=== PATIENT | male | born 1980 | race Caucasian/White ===

== ENCOUNTER 2022-09-23 06:28 | Outpatient (OUT) | payer BC, SELFPAY ==
[2022-09-23 07:12] LABS: Basophils Absolute Auto 0.1 10^3/uL (0.0-0.1); Basophils Percent Auto 0.7 % (0.2-2.0); Eosinophils Absolute Auto 0.1 10^3/uL (0.0-0.7); Eosinophils Percent Auto 1.6 % (0.9-7.0); Hematocrit 44.3 % (42.0-54.0); Hemoglobin 15.6 g/dL (14.0-18.0); Immature Granulocytes Abs Auto 0.02 10^3/uL (0.00-0.03); Immature Granulocytes Pct Auto 0.3 % (0.0-0.5); Lymphocytes Absolute Auto 2.5 10^3/uL (1.2-3.8); Mean Corpuscular HGB Conc 35.2 g/dL (29.9-35.2); Mean Corpuscular Hemoglobin 31.3 pg (25.9-34.0); Mean Platelet Volume 9.7 fL (9.5-13.5); Monocytes Absolute Auto 0.6 10^3/uL (0.3-0.8); Monocytes Percent Auto 8.3 % (1.7-12.0); Neutrophils Absolute Auto 3.5 10^3/uL (1.4-6.5); Neutrophils Percent Auto 52.1 % (43.0-75.0); Platelet Count 226 10^3/uL (150-450); Red Blood Count 4.98 10^6/uL (4.70-6.10); Red Cell Distribution Width 12.3 % (11.0-15.0); White Blood Count 6.7 10^3/uL (4.0-11.0)
[2022-09-23 07:56] LABS: Alanine Aminotransferase 48 U/L (16-63); Albumin Globulin Ratio 1.2; Alkaline Phosphatase 60 U/L (46-116); Anion Gap 10.8; Aspartate Amino Transferase 13 U/L (15-37); BUN Creatinine Ratio 18.8; Bilirubin Total 0.5 mg/dL (0.2-1.0); Calcium 8.7 mg/dL (8.5-10.1); Carbon Dioxide 27.6 mmol/L (21.0-32.0); Chloride 107 mmol/L (98-107); Chol HDL Ratio 4.5; Cholesterol 143 mg/dL (<=200); Estimated GFR (African America >60 (>=60); Estimated GFR (Non-African Ame >60 (>=60); Globulin 3.4 g/dL; Glucose 105 mg/dL (74-106); HDL Cholesterol 32 mg/dL (40-60); Potassium 4.4 mmol/L (3.5-5.1); Sodium 141 mmol/L (136-145); Total Protein 7.4 g/dL (6.4-8.2); Triglycerides 70 mg/dL (<=150)
[2022-09-23 08:12] LABS: Prostate Specific Antigen Scrn 0.74 ng/mL (<=4.00)
== END 2022-09-23 06:29 | disposition home or self-care (01) ==
PROVIDERS: PCP Family Medicine; Visit Provider Family Medicine
DX: Z00.00 Encounter for general adult medical examination without abnormal findings (principal); Z12.5 Encounter for screening for malignant neoplasm of prostate; E78.5 Hyperlipidemia, unspecified
CPT/HCPCS: 36415; 80053; 80061; 85002; 85025; G0103

== ENCOUNTER 2023-09-20 07:52 | Outpatient (OUT) | payer BC, SELFPAY ==
[2023-09-20 08:02] LABS: Basophils Absolute Auto 0.1 10^3/uL (0.0-0.1); Basophils Percent Auto 0.7 % (0.2-2.0); Eosinophils Absolute Auto 0.1 10^3/uL (0.0-0.7); Eosinophils Percent Auto 1.3 % (0.9-7.0); Hematocrit 46.4 % (42.0-54.0); Immature Granulocytes Abs Auto 0.04 10^3/uL (0.00-0.03); Immature Granulocytes Pct Auto 0.5 % (0.0-0.5); Lymphocytes Absolute Auto 2.5 10^3/uL (1.2-3.8); Lymphocytes Percent Auto 32.8 % (20.5-60.0); Mean Corpuscular HGB Conc 34.5 g/dL (29.9-35.2); Mean Corpuscular Hemoglobin 31.1 pg (25.9-34.0); Mean Corpuscular Volume 90.3 fL (80.0-94.0); Mean Platelet Volume 9.6 fL (9.5-13.5); Monocytes Absolute Auto 0.5 10^3/uL (0.3-0.8); Monocytes Percent Auto 6.5 % (1.7-12.0); Neutrophils Absolute Auto 4.4 10^3/uL (1.4-6.5); Neutrophils Percent Auto 58.2 % (43.0-75.0); Platelet Count 224 10^3/uL (150-450); Red Blood Count 5.14 10^6/uL (4.70-6.10); Red Cell Distribution Width 12.3 % (11.0-15.0); White Blood Count 7.5 10^3/uL (4.0-11.0)
[2023-09-20 08:29] LABS: Estimated Average Glucose 103 mg/dL; Glycohemoglobin A1C 5.2 % (4.5-6.2)
[2023-09-20 08:44] LABS: Alanine Aminotransferase 54 U/L (16-63); Albumin Globulin Ratio 1.1; Albumin Level 3.9 g/dL (3.4-5.0); Alkaline Phosphatase 81 U/L (46-116); Anion Gap 13.1; Aspartate Amino Transferase 19 U/L (15-37); BUN Creatinine Ratio 12.5; Bilirubin Total 0.8 mg/dL (0.2-1.0); Calcium 8.7 mg/dL (8.5-10.1); Chloride 104 mmol/L (98-107); Cholesterol 141 mg/dL (<=200); Estimated GFR (African America >60 (>=60); Estimated GFR (Non-African Ame >60 (>=60); Free T3 3.11 pg/mL (2.18-3.98); Globulin 3.5 g/dL; Glucose 108 mg/dL (74-106); HDL Cholesterol 35 mg/dL (40-60); Potassium 4.1 mmol/L (3.5-5.1); Sodium 139 mmol/L (136-145); Thyroid Stimulating Hormone 1.677 uIU/mL (0.358-3.740); Total Protein 7.4 g/dL (6.4-8.2); Triglycerides 79 mg/dL (<=150); VLDL CHOLESTEROL 15.8 mg/dL
[2023-09-20 08:50] LABS: Prostate Specific Antigen Scrn 0.54 ng/mL (<=4.00)
== END 2023-09-20 07:53 | disposition home or self-care (01) ==
PROVIDERS: PCP Family Medicine; Visit Provider Family Medicine
DX: Z00.00 Encounter for general adult medical examination without abnormal findings (principal)
CPT/HCPCS: 36415; 80053; 80061; 83036; 84436; 84443; 84481; 85025; G0103

== ENCOUNTER 2024-09-23 07:34 | Outpatient (OUT) | payer BC, SELFPAY ==
--- OUTSIDE RECORDS SUMMARY | 2023-09-20 11:30 | XMS_ITS ---
Author Organization [facility] in [place] Address [address] [place] [address] Care Team Providers Care Sourcing Associate Name Role Phone Rodrigo Gustafson Primary Care Provider [phone] Allergies No Known Allergies REASON FOR VISIT YEARLY-ppw on desk to fill out Social History Tobacco Use: Social History Observation Description Date Details (start date - stop date) Former Smoker 02/13/1995 - 02/13/2010 Tobacco Use/Smoking Question Answer Notes Patient is a former smoker When did you start smoking? 02/13/1995 When did you stop smoking? 02/13/2010 How long has it been since you last smoked? > 10 years Problems Problem Type SNOMED Code ICD Code Onset Dates Problem Status W/U Status Risk Notes Problem Well adult (768216626) Well adult (Z00.00) Active confirmed Vital Signs Blood pressure systolic 120 mm Hg 09/20/19 24 Blood pressure diastolic 86 mm Hg 024 Heart Rate 86 /min 09/20/2023 Height 67.5 in 09/20/2023 Weight 232.6 lbs 09/20/2023 BMI 35.89 kg/m2 09/20/2023 Oximetry 97 % 09/20/2023 Encounters Encounter Location Date Provider Diagnosis [facility] [address] [place] [address] 09/20/2023 Rodrigo Gustafson Well adult Z00.0 0 Assessments Encounter Date Diagnosis (ICD Code) Assessment Notes Treatment Notes Treatment Clinical Notes Section Notes 09/20/2023 Well adult (ICD-10 - Z00.00) doing well withougt meds - reviewed labs Plan Of Treatment Treatment Notes Assessment Notes Well adult doing well withougt meds - reviewed labs Progress Notes * Narendra DIXON GDOB:1980 (42 yo M)Acc No.[id number]:09/20/2023 Progress Note Patient: Narendra MARTINEZ Provider: Agueda Gustafson ([facility])MD :1980 A ge:42 Y S ex:Male Date:09/20/2023 Address:[facility] [address], [place], [id number] Check In:03:25 PM ESTCheck O ut:04:16 PM EST Subjective: * Chief Complaints: * 1 . YEARLY-ppw on desk to fill out. * HPI: D epression Screening: PHQ-2 (2015 Edition) L ittle interest or pleasure in doing things??Not at all F eeling down, depressed, or hopeless? N ot at all T otal Score 0 welladult. * ROS: E ENT: hearing changes d enies. v isual changes d enies.?non-healing mouth sores d enies. s wollen glands or neck lumps d enies. h oarseness d enies. s ore throat d enies. d ifficulty swallowing d enies. n ose bleeds d enies. n gm congestion d enies. e ar ache d enies. e ar discharge?denies. r inging in ears d enies. l ight sensitivity d enies. e ye pain d enies. b lurring d enies. e ye irritation d enies. d ouble vision d enies.?vision loss d enies. G eneral/Constitutional: Sweats: D enies. F atigue d enies. S leep problems d enies. A norexia d enies. M alaise d enies. W eight loss d enies.?Fatigue or Weakness d enies. F ever or Chills d enies. C ardiovascular: Shortness of Breath w/lying flat d enies. L ightheadedness/dizziness d enies. C hest tightness/ heavy pressure d enies. S welling of legs, ankles, or feet d enies. W aking up with shortness of breath d enies. C hest pain denies. P alpitations d enies. W eight gain d enies. R espiratory: Chronic or frequent cough d enies. C oughing up blood?denies. D ifficulty breathing d enies. P roductive cough d enies. S noring?denies. S hortness of breath that awakens from sleep (PND) d enies. C hest pain d enies. S putum production d enies. W heezing d enies. M usculoskeletal: Joint pain d enies. J oint Fluid d enies. B ack pain d enies. K nee pain d enies. N rosie pain d enies. J oint Stiffness d enies. M uscle cramps d enies. W eakness of muscles d enies. A rthritis d enies. M uscle aches d enies. P ain in shoulder(s) d enies. S wollen joints d enies. * Active Problem List Z00.00 Well adult Modified On:09/20/2023W/U Status:confirmed * Medical History: C OPD (chronic obstructive pulmonary disease), Hyperlipidemia. * Surgical History: D enies Past Surgical History. * Hospitalization/Major Diagno stic Procedure: D enies Past Hospitalization. * Family History: F ather: alive. M other: alive. B rother(s): alive. S ister(s): alive. S on(s): alive. D augtcer(s): alive. 2 brother(s) , 1 sister(s) - healthy. 1 son(s) , 2 daughter(s) - healthy. . * Social History: T obacco Use: T obacco Use/Smoking P atient is a f ormer smoker W hen did you start smoking? 0 02/13/1995 W hen did you stop smoking? 0 02/13/2010 H ow long has it been since you last smoked??> 10 years * Medications: N one * Allergies: N .K.D.A. Objective: * Vitals: W t:232.6lbs, Ht: 67.5 in, BP:120/86mm Hg, HR:86/min, BMI:35.89Index, Oxygen sat %:97%, Ht-cm: 171.45 cm, Wt-k.51 kg. * Examination: P hysical Exam: GENERAL: w susanna developed, well nourished, in no acute distress. HEAD: n ormocephalic/atraumatic. EYES: p upils equal, round and reactive to light, conjunctivae and sclerae normal. EARS: n o deformity or lesion of external ear, canals and TM appear normal bilaterally, TM's intact, not inflamed with normal light reflex, hearing grossly normal to conversational speech. NOSE: n o deformity, discharge, inflammation, or lesions.? MOUTH: m ucous membranes moist, normal oropharynx and posterior pharynx without lesions or exudates, tongue normal, dentition normal. NECK: n rosie supple, no masses or palpable cervical nodes, trachea midline, thyroid without nodules, masses, tenderness, or enlargement. CHEST: n o chest wall deformity, no chest wall tenderness.? LUNGS: n ormal respiratory effort and clear to auscultation, no wheezes, rales, or rhonchi, good air exchange. CARDIO: r egular rate and rhythm, normal S1 and S2, nor murmur, rub, or gallop. PULSES: n ormal capillary refill. ABDOMEN: s oft, non-distended, non-tender, no masses. MUSCULOSKELETAL: n o deformity or scoliosis noted, normal range of motion, joints normal, no erythema, edema, effusion, or ecchymosis. EXTREMITY: n o clubbing, cyanosis, edema, or deformity with normal ROM in both upper and lower bilateral extremities. NEUROLOGIC: g rossly normal. SKIN: n o rashes, ulcerations, or suspicious lesions. LYMPH NODES: n o cervical adenopathy, nodes normal. MENTAL STATUS: a lert and oriented x3, normal mood and affect. Assessment: * Assessment: 1. W ell adult - Z00.00 (Primary) Plan: * Treatment: * * Sign off status: Completed Visit Status: C HK (Check Out) true * Provider: Agueda Gustafson (MD [facility] Date: 0 09/20/2023 Generated for Printi ng/Faxing/eTransmitting on: 0 09/23/2024 07:39 AM EDT History and Physical Notes * HPI (History of Present Illness) Category Sub-Category Detail Notes Category Not es Depression Screening PHQ-2 (2015 Edition) Little interest or pleasure in doing things?: Not at all welladult Feeling down, depressed, or hopeless?: N ot at all Total Score: 0 Examination Category Sub-Category Detail Notes Category Not es Physical Exam GENERAL: well developed, well nourished, in no acute distress HEAD: normocephalic/atraum atic EYES: pupils equal, round and reactive to light, conjunctivae and sclerae normal EARS: no deformity or lesi on of external ear, canals and TM appear normal bilaterally, TM's intact, not inflamed with normal light reflex, hearing grossly normal to conversational speech NOSE: no deformity, discha rge, inflammation, or lesions MOUTH: mucous membranes kurt [place], normal oropharynx and posterior pharynx without lesions or exudates, tongue normal, dentition normal NECK: neck supple, no mass es or palpable cervical nodes, trachea midline, thyroid without nodules, masses, tenderness, or enlargement CHEST: no chest wall deform ity, no chest wall tenderness LUNGS: normal respiratory e ffort and clear to auscultation, no wheezes, rales, or rhonchi, good air exchange CARDIO: regular rate and rhy thm, normal S1 and S2, nor murmur, rub, or gallop PULSES: normal capillary ref ill ABDOMEN: soft, non-distended, non-tender, no masses RECTAL: MUSCULOSKELETAL: no deformity or scol iosis noted, normal range of motion, joints normal, no erythema, edema, effusion, or ecchymosis EXTREMITY: no clubbing, cyanosi s, edema, or deformity with normal ROM in both upper and lower bilateral extremities NEUROLOGIC: grossly normal SKIN: no rashes, ulceratio ns, or suspicious lesions LYMPH NODES: no cervical adenopat hy, nodes normal MENTAL STATUS: alert and oriented x 3, normal mood and affect
--- OUTSIDE RECORDS SUMMARY | 2024-08-20 05:00 | XMS_ITS ---
Author Organization [facility] [place] Address [address] [place] [address] Care Team Providers Care Concert Manager Name Role Phone Rodrigo Gustafson Primary Care Provider [phone] Allergies No Known Allergies REASON FOR VISIT sinus issues- c/o sinus congestion and cough started last Medications Medication SIG (Take, Route, Frequency, Duration) Notes Start Date End Date Status Amoxicillin-Pot Clavulanate 875-125 MG 1 tablet Orally every 12 hrs for 10 days 08/20/2024 Active predniSONE 20 MG 3 tablets Orally Onc e a day for 5 days 08/20/2024 Active Claritin 10 MG 1 tablet Orally Once a day 08/20/2024 Active Social History Tobacco Use: Social History Observation Description Date Details (start date - stop date) Former Smoker 02/13/1995 - 02/13/2010 Tobacco Use/Smoking Question Answer Notes Patient is a former smoker When did you start smoking? 02/13/1995 When did you stop smoking? 02/13/2010 How long has it been since you last smoked? > 10 years AUDIT-C (Standard) Question Answer Notes Did you have a drink contain ing alcohol in the past year? Yes How often did you have a dri nk containing alcohol in the past year? Never (0 point) How many drinks did you have on a typical day when you were drinking in the past year? 1 or 2 drinks (0 point) How often did you have six o r more drinks on one occasion in the past year? 2 to 4 times a month (2 points) Points 2 Interpretation Negative Vital Signs Blood pressure systolic 120 mm Hg 08/21/19 25 Blood pressure diastolic 92 mm Hg 025 Height 67.5 in 08/20/2024 Weight 238.4 lbs 08/20/2024 BMI 36.78 kg/m2 08/20/2024 Encounters Encounter Location Date Provider Diagnosis [facility] [address] [place] [address] 08/20/2024 Rodrigo Gustafson Acute non-recurrent sinusitis, unspecified location J01.90 and Nasal congestion R09.81 Assessments Encounter Date Diagnosis (ICD Code) Assessment Notes Treatment Notes Treatment Clinical Notes Section Notes 08/20/2024 Acute non-recurrent sinusitis, unspecified location (ICD-10 - J01.90) Rest and drink more liquids, especially water. You may use a humidifier or vaporizer to help keep the drainage moist. Bunr-uxk-zxgovos Nasal Saline may help the stuffy and runny nose. Use Ibuprofen and or Tylenol as needed for fever, chills, body aches or pain. Children 5 years old should not be given yhmb-sqg-mvygbcp cough and cold medications such as guaifenesin and dextromethorphan. If you're over age 5, you may try uayp-ehz-rpfifnj cold medications such as guaifenesin and dextromethorphan, or multi-symptom cold reliever such as Dayquil to help reduce the symptoms. Antibiotics have been prescribed. You should take these until completed and follow the directions. Antibiotics can sometimes cause upset stomach, and in rare cases, serious allergic reactions or serious gastrointestinal problems. If you start having severe abdominal pain, severe vomiting, or bloody diarrhea, you should be reevaluated by your physician or urgent care immediately. Follow up with your Primary Care Provider or return to clinic if symptoms do not improve within 3-5 days 08/20/2024 Nasal congestion (ICD-10 - R09.81) Plan Of Treatment Medication Medication Name Sig Start Date Stop Date Notes Amoxicillin-Pot Clavulanate 875-125 MG 1 tablet Orally every 12 hrs for 10 days 08/20/2024 predniSONE 20 MG 3 tablets Orally Onc e a day for 5 days 08/20/2024 Treatment Notes Assessment Notes Acute non-recurrent sinusiti s, unspecified location Rest and drink more liquids, especially water. You may use a humidifier or vaporizer to help keep the drainage moist. Gapv-ujh-shuokro Nasal Saline may help the stuffy and runny nose. Use Ibuprofen and or Tylenol as needed for fever, chills, body aches or pain. Children 5 years old should not be given nliz-bbj-elvlgud cough and cold medications such as guaifenesin and dextromethorphan. If you're over age 5, you may try xwbq-cjq-rmholwt cold medications such as guaifenesin and dextromethorphan, or multi-symptom cold reliever such as Dayquil to help reduce the symptoms. Antibiotics have been prescribed. You should take these until completed and follow the directions. Antibiotics can sometimes cause upset stomach, and in rare cases, serious allergic reactions or serious gastrointestinal problems. If you start having severe abdominal pain, severe vomiting, or bloody diarrhea, you should be reevaluated by your physician or urgent care immediately. Follow up with your Primary Care Provider or return to clinic if symptoms do not improve within 3-5 days Next Appt Details Follow Up: 3-5 days if not i mproving, Reason: Progress Notes * Narendra DIXON GDOB:1980 (43 yo M)Acc No.[id number]:08/20/2024 Progress Note Patient: Narendra MARTINEZ Provider: Agueda Gustafson ([facility])MD :1980 A ge:43 Y S ex:Male Date:08/20/2024 Address:[facility] [place] , [facility], [id number] Check In:08:59 AM ESTCheck O ut:09:13 AM EST Subjective: * Chief Complaints: * s inus issues- c/o sinus congestion and cough started last * HPI: D epression Screening: PHQ-2 (2015 Edition) L ittle interest or pleasure in doing things??Not at all F eeling down, depressed, or hopeless? N ot at all T otal Score 0 4 days -. S inusitis: The patient complains of symptoms of sinus infection. The symptoms have been present for 1-2 days. The symptoms are moderate. Symptomatic treatment has included OTC medication. Associated symptoms include headache, facial pain, runny nose, nasal congestion. * ROS: S kin: Rash agueda enies. E NT: Comments S [employer] for details. C ardiovascular: Edema d enies. P alpitations d enies. ? R espiratory: Chest pain d enies. C ough d enies. W heezing?denies. G astrointestinal: Abdominal pain d enies. N ausea d enies. V omiting d enies. * Active Problem List Z00.00 Well adult Modified On:09/20/2023W/U Status:confirmed * Medical History: * Surgical History: D enies Past Surgical History * Hospitalization/Major Diagno stic Procedure: D enies Past Hospitalization * Family History: F ather: alive. M other: alive. B rother(s): alive. S ister(s): alive. S on(s): alive. D aughter(s): alive. 2 brother(s) , 1 sister(s) - healthy. 1 son(s) , 2 daughter(s) - healthy. . * Social History: T obacco Use: T obacco Use/Smoking P atient is a f ormer smoker W hen did you start smoking? 0 02/13/1995 W hen did you stop smoking? 0 02/13/2010 H ow long has it been since you last smoked??> 10 years D rug/Alcohol: A ROBY-C (Standard) D id you have a drink containing alcohol in the past year? Y es H ow often did you have a drink containing alcohol in the past year? N ever (0 point) H ow many drinks did you have on a typical day when you were drinking in the past year? 1 or 2 drinks (0 point) H ow often did you have six or more drinks on one occasion in the past year? 2 to 4 times a month (2 points) P oints 2 I nterpretation N egative * Medications: T akingClaritin(Loratadine) 10 MG Tablet 1 tablet Orally Once a day Medication List reviewed and reconciled with the patientTaking Claritin(Loratadine) 10 MG Tablet 1 tablet Orally Once a day Medication List reviewed and reconciled with the patient * Allergies: N .K.D.A.no[Allergies Verified] Objective: * Vitals: W t:238.4lbs, Ht: 67.5 in, BP:120/92mm Hg, BMI:36.78Index, Ht-cm: 171.45 cm, Wt- k.14 kg. * Examination: G eneral Examination: GENERAL APPEARANCE: in no acute distress, well developed, well nourished. ENT: ear and nose external appearance normal, tympanic membranes clear bilaterally, facial tenderness to palpation over sinuses. EYES: pupils equal, round, reactive to light and accomodations. ORAL CAVITY: mucosa moist. NECK: n rosie supple, full range of motion, no cervical lymphadenopathy. LUNGS: c lear to auscultation bilaterally. CARDIO: no murmurs, regular rate and rhythm, S1, S2 normal. ABDOMEN: soft, nontender , not distended, bowel sounds are active. SKIN: no suspicious lesions, warm and dry. EXTREMITIES: no clubbing, cyanosis, or edema. NEUROLOGIC: nonfocal, motor strength of upper/lower extremities intact , sensory exam intact. Assessment: * Assessment: 1. A cute non-recurrent sinusitis, unspecified location - J01.90 (Primary) 2 .?Nasal congestion - R09.81 Plan: * Treatment: * Procedure Codes: * Preventive Medicine: Screenings/Counseling: B NM ACTION PLAN Above Normal BMI Follow-up D ietary management education, guidance, and counseling * Follow Up: 3 -5 days if not improving * * Sign off status: Completed Visit Status: C HK (Check Out) true * Provider: Agueda Gustafson ([facility])MD Date: 0 08/20/2024 Generated for Ena khan/Sally/eTransmitting on: 0 09/23/2024 07:39 AM EDT History and Physical Notes * HPI (History of Present Illness) Category Sub-Category Detail Notes Category Not es Depression Screening PHQ-2 (2015 Edition) Little interest or pleasure in doing things?: Not at all 4 days - Feeling down, depressed, or hopeless?: N ot at all Total Score: 0 Examination Category Sub-Category Detail Notes Category Not es General Examination GENERAL APPEARANCE: in no ac kev distress, well developed, well nourished ENT: ear and nose externa l appearance normal, tympanic membranes clear bilaterally, facial tenderness to palpation over sinuses EYES: pupils equal, round, reactive to light and accomodations NECK: neck supple, full ra nge of motion, no cervical lymphadenopathy CARDIO: no murmurs, regular rate and rhythm, S1, S2 normal LUNGS: clear to auscultatio n bilaterally ABDOMEN: soft, nontender , no t distended, bowel sounds are active NEUROLOGIC: nonfocal, motor stre ngth of upper/lower extremities intact , sensory exam intact SKIN: no suspicious lesion s, warm and dry EXTREMITIES: no clubbing, cyanosi s, or edema ORAL CAVITY: mucosa moist
--- OUTSIDE RECORDS SUMMARY | 2024-09-20 10:30 | XMS_ITS ---
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 Medications Medication SIG (Take, Route, Fr equency, Duration) Notes Start Date End Date Status Claritin 10 MG 1 tablet Orally Once a day 08/21/19 25 Active Social History Tobacco Use: Social History [...] Interpretation Negative Vital Signs Blood pressure systolic 128 mm Hg 09/21/19 25 Blood pressure diastolic 80 mm Hg 025 Height 67.5 in 09/20/2024 Weight 235.4 lbs 09/20/2024 BMI 36.32 kg/m2 09/20/2024 Encounters Encounter Location Date Provider Diagnosis [facility] [address] [place] [address] 09/20/2024 Rodrigo Gustafson Well adult Z00.0 0 Assessments Encounter Date Diagnosis (ICD Code) Assessment Notes Treatment Notes Treatment Clinical Notes Section Notes 09/20/2024 Well adult (ICD-10 - Z00.00) Plan Of Treatment Pending Test Test Name Order Date HEMOGLOBIN A1C (GLYCO) 09/20/2024 LIPID PANEL (CHOL/TRIG/HDL/LDL) 09/21/19 25 PSA, SCREENING 09/20/2024 CMP (COMP MET BERRIOS) w/eGFR CKD-EPI 2024 CBC WITH DIFF 09/20/2024 Progress Notes * Narendra DIXON GDOB:1980 (43 yo M)Acc No.[id number]:09/20/2024 UNLOCKED PROGRESS NOTE Progress Note Patient: Narendra MARTINEZ Provider: Agueda Gustafson ([facility])MD :1980 A ge:43 Y S ex:Male Date:09/20/2024 Address:[facility] [address], [facility], [id number] Check In:01:52 PM ESTCheck O ut:03:04 PM EST Subjective: * Chief Complaints: * 1 . 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 * ROS: E ENT: hearing changes d [...] enies. S wollen joints d enies. * Medical History: C OPD (chronic obstructive pulmonary disease), Hyperlipidemia. * Surgical History: D ental extractions . * Hospitalization/Major Diagno stic Procedure: d enies . * Family History: F ather: alive. M [...] I nterpretation N egative * Medications: T aking Claritin(Loratadine) 10 MG Tablet 1 tablet Orally Once a day , Discontinued Amoxicillin-Pot Clavulanate 875-125 MG Tablet 1 tablet Orally every 12 hrs , Discontinued predniSONE 20 MG Tablet 3 tablets Orally Once a day , Medication List reviewed and reconciled with the patient * Allergies: N .K.D.A. Objective: * Vitals: W t:235.4lbs, Ht: 67.5 in, BP:128/80mm Hg, BMI:36.32Index, Ht-cm: 171.45 cm, Wt- k.78 kg. * Examination: P hysical Exam: GENERAL: w ell developed, well nourished, in no acute distress. [...] - Z00.00 (Primary) Plan: * Treatment: * Preventive Medicine: Screenings/Counseling: B ND ACTION PLAN Above Normal BMI Follow-up D ietary management education, guidance, and counseling See treatment section of progress note for complete details of management plan. * * Electronic signature of Rodrigo Gustafson MD, [phone] on 09/23/2024 at 07:39 AM EDT Sign off status: Pending Visit Status: C HK (Check Out) * Provider: Agueda Gustafson ([facility])MD Date: 09/20/2024 Generated for Printi ng/Fapageg/eTransmitting on: 0 09/23/2024 07:39 AM EDT History and Physical Notes * Examination Category Sub-Category Detail Notes Category Not [...]
--- OUTSIDE RECORDS SUMMARY | 2024-09-23 07:40 | XMS_ITS | Patient Health Record ---
Author Organization [facility] in [place] Address [address] [place] [address] Care Team Providers Care Supervisor [place]umping [place] Name Role Phone Rodrigo Gustafson Primary Care Provider [phone] Allergies No Known Allergies Reason For Referral No Information Medications Medication SIG (Take, Route, Fr equency, [...] month (2 points) Points 2 Interpretation Negative Problems Problem Type SNOMED Code ICD Code Onset Dates Problem Status W/U Status Risk Notes Problem Well adult (576270693) Well adult (Z00.00) Active confirmed Vital Signs Blood pressure diastolic 80 mm Hg 09/20/2024 Height 67.5 in 09/20/2024 Blood pressure systolic 128 mm Hg 09/20/2024 Weight 235.4 lbs 09/20/2024 BMI 36.32 kg/m2 09/20/2024 Encounters Encounter Location Date Provider Diagnosis [facility] [address] [place] [address] 09/20/2024 Rodrigo Gustafson Well adult Z00.00 [facility] [address] [place] [address] 08/20/2024 Rodrigo Gustafson Acute non-recurrent sinusitis, unspecified location J01.90 and Nasal congestion R09.81 Assessments Encounter Date Diagnosis (ICD Code) Assessment Notes Treatment Notes Treatment Clinical Notes Section Notes 09/20/2024 Well adult (ICD-10 - Z00.00) 08/20/2024 Acute non-recurrent sinusitis, unspecified location (ICD-10 - J01.90) Rest and drink more liquids, especially water. You may use a humidifier or vaporizer to help keep the drainage moist. Kiar-jgn-vcmvarv Nasal Saline may help the stuffy and runny nose. Use Ibuprofen and or Tylenol as needed for fever, chills, body aches or pain. Children 5 years old should not be given pdtc-jnh-dlwyuyf cough and cold medications such as guaifenesin and dextromethorphan. If you're over age 5, you may try wpkf-gch-kcgrojc cold medications such as guaifenesin and dextromethorphan, [...] congestion (ICD-10 - R09.81) Plan Of Treatment Pending Test Test Name Order Date HEMOGLOBIN A1C (GLYCO) 09/20/2024 LIPID PANEL (CHOL/TRIG/HDL/LDL) 09/21/19 25 PSA, PROSTATE-SPECIFIC ANTIGEN CMP - Comprehensive Metabolic Panel 06/2023 CBC W/AUTO DIFF 09/18/2023 PSA, TOTAL 09/19/2022 BLEEDING TIME 09/19/2022 CBC AUTO DIFF 09/19/2022 LIPID PROFILE 09/19/2022 PROF 14(COMP METB) 09/19/2022 THYROID PANEL (T4/TSH/FREE T3) PSA, SCREENING 09/18/2023 PSA, SCREENING 09/20/2024 CMP (COMP MET BERRIOS) w/eGFR CKD-EPI 2024 CBC WITH DIFF 09/20/2024 Insurance Providers Payer Name Payer Address Payer Phone Subscriber Number Group Number Insured Name Patient Relationship to Insured Coverage Start Date Coverage End Date [employer] [address] [place] [address] [id number] Narendra Stanley Self - patient is the insured [employer] ACC[employer] PPO PLUS LOCAL PLAN [address] [place] [address] [id number] G Darcy Stanley Spouse - patient is the spouse of the insured Medical (General) History Medical History History ICD Code COPD (chronic obstructive pulmonary dise ase) J44.9 Hyperlipidemia E78.5 Surgical History Surgery Date(Month/Year) Dental extractions Hospitalization History Reason Date(Month/Year) denies
--- OUTSIDE RECORDS SUMMARY | 2024-09-23 07:40 | XMS_ITS | CCD ---
Author Organization [facility] Care Team Providers Care Nuclear Supervising Operator Name Role Phone DR KOBI BACK Admitting Unavailable DR KOBI BACK Attending Unavailable DR KOBI BACK Primary Care Unavailable DR KOBI BACK Consulting Unavailable Problems Problem Classification Problem Date Documented Da te Episodic/Chronic Other screening for suspected conditions (not mental disorders or infectious disease) (1 source) Encounter for screening for malignant neoplasm of prostate; Translations: [ENC SCREEN MALIG NEOPLASM PROSTATE] Onset: 06-02-2021 Episodic Results Test Name Value Interpretation Reference Range Facil ity CBC AUTO DIFFon 05-28-2021 BASO # 0.0 103/ul Normal 0.0-0.1 [facility] Comment on above: Performed By: #### C BC #### [facility] [address] [place] [address] Dr. Vivi Jasso Basophils/100 WBC (Bld) 0.4 % Normal 0.2-2.0 [facility] Comment on above: Performed By: #### C BC #### [facility] [address] [place] [address] Dr. Vivi Jasso EO # 0.2 103/ul Normal 0.0-0.7 [facility] Comment on above: Performed By: #### C BC #### [facility] [address] [place] [address] Dr. Vivi Jasso Eosinophils/100 WBC (Bld) 2.4 % Normal 0.9-7.0 [facility] Comment on above: Performed By: #### C BC #### [facility] [address] [place] [address] Dr. Vivi Jasso Erythrocyte distribution width (RBC) [Ratio] 12.2 % Normal 11.0-15.0 [facility] Comment on above: Performed By: #### C BC #### [facility] [address] [address] [address] Vivi Jasso Hematocrit (Bld) [Volume fraction] 44.8 % Normal 42.0-54.0 [facility] Comment on above: Performed By: #### C BC #### [facility] [address] [address] [address] Vivi Jasso Hemoglobin (Bld) [Mass/Vol] 15.3 g/dL Normal 14.0-18.0 [facility] Comment on above: Performed By: #### C BC #### [facility] [address] [place] [address] Dr. Vivi Jasso IG # 0.06 10e3/ul Critically high 0.00-0.03 [facility] Comment on above: Performed By: #### C BC #### [facility] [address] [place] [address] Dr. Vivi Jasso IG % 0.7 % Critically high 0.0-0.5 [facility] Comment on above: Performed By: #### C BC #### [facility] [address] [place] [address] Dr. Vivi Jasso LYMPH # 2.3 103/ul Normal 1.2-3.8 [facility] Comment on above: Performed By: #### C BC #### [facility] [address] [place] [address] Dr. Vivi Jasso Lymphocytes/100 WBC (Bld) 27.2 % Normal 20.5-60.0 [facility] Comment on above: Performed By: #### C BC #### [facility] [address] [place] [address] Dr. Vivi Jasso MANUAL DIFF REQ NO Normal [facility] Comment on above: Performed By: #### C BC #### [facility] [address] [place] [address] Dr. Vivi Jasso MCH (RBC) [Entitic mass] 30.6 pg Normal 25.9-34.0 [facility] Comment on above: Performed By: #### C BC #### [facility] [address] [place] [address] Dr. Vivi Jasso MCHC (RBC) [Mass/Vol] 34.2 g/dL Normal 29.9-35.2 [facility] Comment on above: Performed By: #### C BC #### [facility] [address] [address] [address] Vivi Jasso MCV (RBC) [Entitic vol] 89.6 fL Normal 80.0-94.0 [facility] Comment on above: Performed By: #### C BC #### [facility] [address] [place] [address] Dr. Vivi Jasso MONO # 0.7 103/ul Normal 0.3-0.8 [facility] Comment on above: Performed By: #### C BC #### [facility] [address] [place] [address] Dr. Vivi Jasso Monocytes/100 WBC (Bld) 8.3 % Normal 1.7-12.0 [facility] Comment on above: Performed By: #### C BC #### [facility] [address] [place] [address] Dr. Vivi Jasso NEUT # 5.0 103/ul Normal 1.4-6.5 [facility] Comment on above: Performed By: #### C BC #### [facility] [address] [place] [address] Dr. Vivi Jasso Neutrophils/100 WBC (Bld) 61.0 % Normal 43.0-75.0 [facility] Comment on above: Performed By: #### C BC #### [facility] [address] [place] [address] Dr. Vivi Jasso Platelet mean volume (Bld) [Entitic vol] 9.3 fL Critically low 9.5-13.5 [facility] Comment on above: Performed By: #### C BC #### [facility] [address] [place] [address] Dr. Vivi Jasso PLT 240 103/ul Normal 150-450 [facility] Comment on above: Performed By: #### C BC #### [facility] [address] [place] [address] Dr. Vivi Jasso RBC 5.00 106/ul Normal 4.70-6.10 [facility] Comment on above: Performed By: #### C BC #### [facility] [address] [place] [address] Dr. Vivi Jasso WBC 8.3 103/ul Normal 4.0-11.0 [facility] Comment on above: Performed By: #### C BC #### [facility] [address] [place] [address] Dr. Vivi Jasso GLYCOHEMOGLOBIN A1Con 2021 ADA RECOMMENDATION ADA THERAPEUTIC TARGET 6.0 - 7.0 ACTION SUGGESTED > 7.0 Normal [facility] Comment on above: Performed By: #### A 1C #### [facility] [address] [place] [address] Dr. Vivi Jasso Glucose [Mass/Vol] 103 mg/dL Normal [facility] Comment on above: Performed By: #### A 1C #### [facility] [address] [place] [address] Dr. Vivi Jasso HbA1c (Bld) [Mass fraction] 5.2 % Normal <=6.0 [facility] Comment on above: Performed By: #### A 1C #### [facility] [address] [place] [address] Dr. Vivi Jasso LIPID PROFILEon 05-28-2021 CHOL-HDL RATIO NORM SEE BELOW Normal [facility] Comment on above: Result Comment: 3.3 - 4.4 LOW RISK 4.4 - 7.1 AVERAGE RISK 7.1 - 11.0 MODERATE RISK >11.0 HIGH RISK Performed By: #### C MP, LIPID #### [facility] [address] [place] [address] Dr. Vivi Jasso Cholesterol [Mass/Vol] 139 mg/dL Normal <=200 [facility] Comment on above: Performed By: #### C MP, LIPID #### [facility] [address] [place] [address] Dr. Vivi Jasso Cholesterol in HDL [Mass/Vol] 30 mg/dL Critically low 40-60 [facility] Comment on above: Performed By: #### C MP, LIPID #### [facility] [address] [address] [address] Vivi Jasso Cholesterol in LDL [Mass/Vol] 96.6 mg/dL Normal [facility] Comment on above: Performed By: #### C MP, LIPID #### [facility] [address] [address] [address] Vivi Jasso Cholesterol.total/Cho lesterol in HDL [Mass ratio] 4.6 {ratio} Normal [facility] Comment on above: Performed By: #### C MP, LIPID #### [facility] [address] [address] [address] Vivi Jasso HDL NORMAL > or = 60 mg/dl - LOW CARDIOVASCULAR RISK <40 mg/dl - HIGH CARDIOVASCULAR RISK Normal [facility] Comment on above: Performed By: #### C MP, LIPID #### [facility] [address] [place] [address] Dr. Vivi Jasso LDL CALC NORMAL SEE BELOW Normal [facility] Comment on above: Result Comment: <100 mg/dl OPTIMAL 100 - 129 mg/dl NEAR OR ABOVE OPTIMAL 130 - 159 mg/dl BORDERLINE HIGH 160 - 189 mg/dl HIGH >190 mg/dl VERY HIGH Performed By: #### C MP, LIPID #### [facility] [address] [place] [address] Dr. Vivi Jasso Triglyceride [Mass/Vol] 62 mg/dL Normal <=150 [facility] Comment on above: Performed By: #### C MP, LIPID #### [facility] [address] [address] [address] Vivi Jasso VLDL CALC 12.4 mg/dL Normal [facility] Comment on above: Performed By: #### C MP, LIPID #### [facility] [address] [address] [address] Vivi Jasso PROF 14(COMP METB)on 022 Albumin [Mass/Vol] 3.8 g/dL Normal 3.4-5.0 [facility] Comment on above: Performed By: #### C MP, LIPID #### [facility] [address] [place] [address] Dr. Vivi Jasso Albumin/Globulin [Mass ratio] 1.0 {ratio} Normal [facility] Comment on above: Performed By: #### C MP, LIPID #### [facility] [address] [place] [address] Dr. Vivi Jasso ALP [Catalytic activity/Vol] 71 U/L Normal 46-116 [facility] Comment on above: Performed By: #### C MP, LIPID #### [facility] [address] [place] [address] Dr. Vivi Jasso ALT [Catalytic activity/Vol] 43 U/L Normal 16-63 [facility] Comment on above: Performed By: #### C MP, LIPID #### [facility] [address] [place] [address] Dr. Vivi Jasso Anion gap [Moles/Vol] 12.6 mmol/L Normal [facility] Comment on above: Performed By: #### C MP, LIPID #### [facility] [address] [place] [address] Dr. Vivi Jasso AST [Catalytic activity/Vol] 15 U/L Normal 15-37 [facility] Comment on above: Performed By: #### C MP, LIPID #### [facility] [address] [place] [address] Dr. Vivi Jasso Bilirubin [Mass/Vol] 0.5 mg/dL Normal 0.2-1.3 [facility] Comment on above: Performed By: #### C MP, LIPID #### [facility] [address] [place] [address] Dr. Vivi Jasso Calcium [Mass/Vol] 8.4 mg/dL Critically low 8.5-10.1 [facility] Comment on above: Performed By: #### C MP, LIPID #### [facility] [address] [place] [address] Dr. Vivi Jasso Chloride [Moles/Vol] 105 mmol/L Normal 98-107 [facility] Comment on above: Performed By: #### C MP, LIPID #### [facility] [address] [place] [address] Dr. Vivi Jasso CO2 [Moles/Vol] 26.8 mmol/L Normal 22.0-30.0 [facility] Comment on above: Performed By: #### C MP, LIPID #### [facility] [address] [place] [address] Dr. Vivi Jasso Creatinine [Mass/Vol] 0.99 mg/dL Normal 0.66-1.25 [facility] Comment on above: Performed By: #### C MP, LIPID #### [facility] [address] [address] [address] Vivi Jasso EGFR-AF SYRIAN >60 Normal >=60 [facility] Comment on above: Performed By: #### C MP, LIPID #### [facility] [address] [place] [address] Dr. Vivi Jasso EGFR-NON AF SYRIAN >60 Normal >=60 [facility] Comment on above: Performed By: #### C MP, LIPID #### [facility] [address] [place] [address] Dr. Vivi Jasso Globulin (S) [Mass/Vol] 3.8 g/dL Normal [facility] Comment on above: Performed By: #### C MP, LIPID #### [facility] [address] [place] [address] Dr. Vivi Jasso Glucose [Mass/Vol] 107 mg/dL Critically high 74-106 [facility] Comment on above: Performed By: #### C MP, LIPID #### [facility] [address] [place] [address] Dr. Vivi Jasso Potassium [Moles/Vol] 4.4 mmol/L Normal 3.4-5.0 [facility] Comment on above: Performed By: #### C MP, LIPID #### [facility] [address] [place] [address] Dr. Vivi Jasso Protein [Mass/Vol] 7.6 g/dL Normal 6.1-8.2 [facility] Comment on above: Performed By: #### C MP, LIPID #### [facility] [address] [place] [address] Dr. Vivi Jasso Sodium [Moles/Vol] 140 mmol/L Normal 137-145 [facility] Comment on above: Performed By: #### C MP, LIPID #### [facility] [address] [address] [address] Vivi Jasso Urea nitrogen [Mass/Vol] 19.0 mg/dL Critically high 7.0-18.0 [facility] Comment on above: Performed By: #### C MP, LIPID #### [facility] [address] [id number] Vivi Jasso Urea nitrogen/Creatinine [Mass ratio] 19.2 mg/mg Normal [facility] Comment on above: Performed By: #### C MP, LIPID #### [facility] [address] [place] [address] Dr. Vivi Jasso Encounters Encounter Date Encounter Type Care Provider Facility Start: 06-02-2021 Encounter for genera l adult medical examination without abnormal findings DR KOBI BACK [facility] Start: 05-28-2021 End: 05-29-[address] KOBI BACK Facility:[facility] Start: 05-28-2021 End: 05-29-2021 Encounter for general adult medical examination without abnormal findings DR KOBI BACK Facility:[facility] Procedures Date Procedure Procedure Detail Performing Clinician Start: 05-28-[address] AVSI BACK Comment on above: Performed By: #### P SASC #### [facility] [address] [place] [address] Dr. Vivi Jasso Payers Date Payer Category Payer Unknown [id number] 1980 Unknown [id number] 1960 Unknown [id number] Summary Purpose Family History No Family History Records Found Advance Directives No Advanced Directives Records Found Additional Source Comments (unrecognized sect ion and content) No Status Records Found INFORMATION SOURCE (unrecogn ized section and content) DATE CREATED AUTHOR 06/03/2021 [facility] FOR RECORDS PERTAINING TO PATIENTS WHO ARE OR HAVE BEEN ENROLLED IN A CHEMICAL DEPENDENCY/SUBSTANCEABUSE PROGRAM, SOME INFORMATION MAY BE OMITTED. This clinical summary was aggregated from multiple sources. Caution should be exercised in using it in the provision of clinical care. This summary normalizes information from multiple sources, and as a consequence, information in this document may materially change the coding, format and clinical context of patient data. In addition, data may be omitted in some cases. CLINICAL DECISIONS SHOULD BE BASED ON THE PRIMARY CLINICAL RECORDS. [facility] [employer] [facility]. provides no warranty or guarantee of the accuracy or completeness of information in this document.
[2024-09-23 07:56] LABS: Hematocrit 43.0 % (42.0-54.0); Hemoglobin 15.4 g/dL (14.0-18.0); Immature Granulocytes Abs Auto 0.03 10^3/uL (0.00-0.03); Immature Granulocytes Pct Auto 0.5 % (0.0-0.5); Lymphocytes Absolute Auto 2.3 10^3/uL (1.2-3.8); Mean Corpuscular HGB Conc 35.8 g/dL (29.9-35.2); Mean Corpuscular Hemoglobin 31.6 pg (25.9-34.0); Mean Corpuscular Volume 88.3 fL (80.0-94.0); Platelet Count 230 10^3/uL (150-450); Red Blood Count 4.87 10^6/uL (4.70-6.10); White Blood Count 6.5 10^3/uL (4.0-11.0)
[2024-09-23 08:22] LABS: Alanine Aminotransferase 43 U/L (16-63); Albumin Globulin Ratio 1.1; Albumin Level 3.9 g/dL (3.4-5.0); Alkaline Phosphatase 66 U/L (46-116); Anion Gap 13.3; Aspartate Amino Transferase 22 U/L (15-37); Blood Urea Nitrogen 13.0 mg/dL (7.0-18.0); Calcium 8.6 mg/dL (8.5-10.1); Carbon Dioxide 26.6 mmol/L (21.0-32.0); Chloride 105 mmol/L (98-107); Cholesterol 149 mg/dL (<=200); Estimated GFR (African America >60 (>=60 mL/min/1.73m^2); Estimated GFR (Non-African Ame >60 (>=60 mL/min/1.73m^2); Globulin 3.4 g/dL; Glucose 109 mg/dL (74-106); HDL Cholesterol 37 mg/dL (40-60); Potassium 3.9 mmol/L (3.5-5.1); Sodium 141 mmol/L (136-145); Total Protein 7.3 g/dL (6.4-8.2); Triglycerides 58 mg/dL (<=150); VLDL CHOLESTEROL 11.6 mg/dL
== END 2024-09-23 07:35 | disposition home or self-care (01) ==
PROVIDERS: PCP Family Medicine; Visit Provider Family Medicine
DX: Z00.00 Encounter for general adult medical examination without abnormal findings (principal); Z12.5 Encounter for screening for malignant neoplasm of prostate
CPT/HCPCS: 36415; 80053; 80061; 83036; 85025; G0103